=== PATIENT | male | born 1970 | race Caucasian/White ===

== ENCOUNTER 2017-11-01 11:30 | Emergency (ER) | payer OTHER, BC ==
[~2017-11-01] VITALS: Ht 177.8 cm; Wt 146.2 kg
[2017-11-01] MEDS ORDERED: ERYTHROMYC1 APPLICAT RIGHT EYE (13:59)
[2017-11-01 14:29] VITALS: BP 122/76
== END 2017-11-01 14:30 | disposition home or self-care (01) ==
LOC: EME 11:30
DX: S05.8X1A Other injuries of right eye and orbit, initial encounter (principal); W22.8XXA Striking against or struck by other objects, initial encounter; J43.9 Emphysema, unspecified; I10 Essential (primary) hypertension; Z88.0 Allergy status to penicillin; F17.200 Nicotine dependence, unspecified, uncomplicated
CPT/HCPCS: 99281; 99283